=== PATIENT | female | born 1960 | race Caucasian/White ===

== ENCOUNTER 2018-05-24 14:52 | Emergency (ER) | payer BC, SELFPAY ==
[2018-05-24 15:11] VITALS: PULSE 76; RESP 16; TEMP 37.1; O2SAT 96
[2018-05-24 15:14] VITALS: BP 141/80
--- NOTE | 2018-05-24 15:37 | DI.CT.S_ITS ---
PROCEDURE: CT SOFT TISSUE NECK W CON INDICATIONS: right dental absces large facial swelling TECHNIQUE: After the administration of intravenous contrast, 3.0 mm axial sections acquired from the sella to the aortic arch. Additional oblique axial 3.0 mm sections acquired through the pharynx. 3 mm thick coronal and sagittal reformats were generated. For radiation dose reduction, the following was used: automated exposure control. COMPARISON: None. FINDINGS: Image quality: Excellent. Lymph nodes: Borderline enlarged lymph nodes are present predominantly within the right neck. Vessels: Visualized vasculature appears patent. Neck spaces: The oropharynx, nasopharynx, and pharynx demonstrate no mucosal lesions. The vocal cords, false vocal cords, pyriform sinuses, epiglottis, vallecula, and tongue base all appear normal. Extramucosal spaces appear unremarkable. Glands: The parotid and submandibular glands appear normal. Thyroid gland is heterogeneously enlarged with areas of low attenuation and calcification bilaterally, more prominent on the left, extending to the superior mediastinum.. Miscellaneous: Visualized brain and orbits appear normal. Lung apices appear clear. Superficial soft tissues demonstrate a kidney and stranding adjacent to the anterior mid mandible. There is significant streak artifact from adjacent dental hardware. While this limits evaluation, there are felt to be areas of lucency within the posterior lower right teeth, adjacent to the edema. No focal fluid collection is identified to suggest abscess within the soft tissues. Bones: No suspicious bony lesions. Visualized sinuses and mastoids appear unremarkable. IMPRESSION: 1. Soft tissue edema adjacent to the right mandible with suspected areas of lucency within the posterior right lower teeth suggestive of dental disease. Overall appearance is suggestive of cellulitis. No soft tissue abscess is identified. Dental abscess within the cavity cannot be excluded. Borderline adenopathy presumably reactive is noted. Dictated by: Tayla Richmond M.D. on 05/24/2018 at 16:56 Approved by: Tayla Richmond M.D. on 05/24/2018 at 17:02
--- NOTE | 2018-05-24 15:39 | ED.DENTAL ---
HPI - Dental/Oral General Chief complaint: Dental/Oral Stated complaint: oral swelling and pain from dentist,sent for antib Time Seen by Provider: 05/24/18 15:17 Source: patient Mode of arrival: ambulatory Limitations: no limitations History of Present Illness HPI Narrative: Patient is a 58-year-old female who presents with right-sided facial swelling. He said he was diagnosed with a dental abscess this morning. She noticed some pain and discomfort 3 days ago a did progressively get worse however this morning she woke up and her face was significantly swollen along with some of her neck. She has no difficulty swallowing or speaking. She is able to open her mouth without any difficulty. She was seen by her dentist today who sent her to the emergency department for IV antibiotics and possible admission. She denies any fever or chills. Related Data Previous Rx's Medication Instructions Recorded amoxicillin-pot clavulanate 1 tab PO Q12H #20 tab 05/24/18 [Augmentin] hydrocodone-acetaminophen [[place]] 1 tab PO Q6H PRN #10 tab 05/24/18 prednisone 50 mg PO DAILY #5 tab 05/24/18 Allergies Allergy/AdvReac Type Severity Reaction Status Date / Time No Known Drug Allergies Allergy Verified 05/24/18 15:14 Review of Systems Review of Systems GENERAL: Denies chills, fatigue, malaise, fever, sweats, travel HEENT: See HPI RESPIRATORY: Denies dyspnea, cough, wheezing, hemoptysis, sputum. CARDIOVASCULAR: Denies chest pain, palpitations, orthopnea, edema GASTROINTESTINAL: Denies nausea, vomiting, abdominal pain, diarrhea, constipation, melena. : Denies dysuria, frequency, incontinence, hematuria, urinary retention, flank pain. MUSCULOSKELETAL: Denies weakness, joint pain, or bony pain SKIN: No rash, no erythema, no pruritus NEUROLOGIC: Denies weakness, dizziness, headache, numbness, change in speech, confusion PSYCHIATRIC: No concerning psychosocial issues. 12 point review of systems is negative except for those stated above and HPI PFSH Social History Smoking Status: Current every day smoker Social History Smoking Status: Current every day smoker Exam Initial Vital Signs Initial Vital Signs: Vital Signs Temperature 98.8 F 05/24/18 15:11 Pulse Rate 76 05/24/18 15:11 Respiratory Rate 16 05/24/18 15:11 Pulse Oximetry 96 05/24/18 15:11 GENERAL: Alert female with obvious right facial no acute distress speaking without difficulty HEENT: Head atraumatic,EOMI, pupils reactive, significant right-sided facial swelling mild erythema. No obvious dental abscess PHARYNX: No tonsillar swelling or exudate no uvula deviation airway patent CARDIOVASCULAR: Regular rate and rhythm without murmurs, rubs or gallops. RESPIRATORY: Breath sounds equal bilaterally, no wheezes rales or rhonchi. ABDOMEN: Soft, nontender. Normoactive bowel sounds all 4 quadrants. No guarding or rebound. EXTREMITIES: Normal range of motion, no clubbing or edema. Neurovascularly intact NEUROLOGICAL: Alert and oriented x4.Normal gait and speech. SKIN: Warm, dry, no laceration, no petechiae, no rashes or lesions. Course Orders Ordered: Discontinued Medications Ampicillin Sodium/Sulbactam (Sodium 3 gm/ Sodium Chloride) 100 mls @ 100 mls/hr IV NOW ONE Stop: 05/24/18 15:38 Last Infusion: 05/24/18 18:13 Dose: 0 mls/hr Admin: 05/24/18 15:58 Dose: 100 mls/hr Dexamethasone 20 mg/ Sodium (Chloride) 52 mls @ 208 mls/hr IV NOW ONE Stop: 05/24/18 15:38 Last Infusion: 05/24/18 17:05 Dose: 0 mls/hr Admin: 05/24/18 15:58 Dose: 208 mls/hr Sodium Chloride (Normal Saline 0.9%) 1,000 mls @ 1,000 mls/hr IV BOLUS ONE Stop: 05/24/18 16:36 Last Infusion: 05/24/18 18:47 Dose: 0 mls/hr Admin: 05/24/18 15:58 Dose: 1,000 mls/hr Ketorolac Tromethamine (Toradol) 15 mg IV NOW ONE Stop: 05/24/18 17:29 Last Admin: 05/24/18 17:46 Dose: 15 mg Vital Signs - 8 hr 05/24/18 15:11 05/24/18 15:14 Temperature 98.8 F Pulse Rate 76 Respiratory Rate 16 Blood Pressure [Left Arm] 141/80 H Pulse Oximetry 96 MDM - Dental/Oral Lab Data Attestation: I reviewed the patient's lab results. Result diagrams: 05/24/18 15:52 05/24/18 15:52 Lab Results 05/24/18 05/24/18 05/24/18 Range/Units 15:52 15:52 15:56 WBC 7.1 (4.5-11.0) X10^3/uL RBC 4.62 (4.0-5.2) X10^6/uL Hgb 13.9 (12.0-16.0) g/dL Hct 42.2 (36-46) % MCV 91.3 (80-100) fL MCH 30.1 (26-34) PG MCHC 33.0 (30-36) % RDW 13.8 (11.6-14.8) % Plt Count 147 L (150-400) X10^3/uL Neut % (Auto) 68.3 (50-75) % Lymph % (Auto) 20.9 L (25-40) % [place] % (Auto) 9.2 (3-14) % Eos % (Auto) 0.9 L (2-4) % Baso % (Auto) 0.7 (0-2) % Neut # (Auto) 4800 (2901-5894) /uL Lymph # (Auto) 1500 (2705-9013) /uL [place] # (Auto) 700 (0-900) /uL Eos # (Auto) 100 (0-450) /uL Baso # (Auto) 0 (0-100) /uL Sodium 140 (137-145) mmol/L Potassium 4.1 (3.4-5.1) mmol/L Chloride 106 (98-107) mmol/L Carbon Dioxide 27 (22-32) mmol/L BUN 10 (7-17) mg/dL Creatinine 0.70 (0.52-1.04) mg/dL Estimated GFR > 60.0 (>60) mL/min BUN/Creatinine Ratio 14.3 (6-22) Glucose 98 (70-100) mg/dL Lactate 0.7 (0.7-2.1) mmol/L Calcium 9.4 (8.4-10.2) mg/dL Imaging Data soft tissue neck: Radiologist's impression: PROCEDURE: CT SOFT TISSUE NECK W CON INDICATIONS: right dental absces large facial swelling TECHNIQUE: After the administration of intravenous contrast, 3.0 mm axial sections acquired from the sella to the aortic arch. Additional oblique axial 3.0 mm sections acquired through the pharynx. 3 mm thick coronal and sagittal reformats were generated. For radiation dose reduction, the following was used: automated exposure control. COMPARISON: None. FINDINGS: Image quality: Excellent. Lymph nodes: Borderline enlarged lymph nodes are present predominantly within the right neck. Vessels: Visualized vasculature appears patent. Neck spaces: The oropharynx, nasopharynx, and pharynx demonstrate no mucosal lesions. The vocal cords, false vocal cords, pyriform sinuses, epiglottis, vallecula, and tongue base all appear normal. Extramucosal spaces appear unremarkable. Glands: The parotid and submandibular glands appear normal. Thyroid gland is heterogeneously enlarged with areas of low attenuation and calcification bilaterally, more prominent on the left, extending to the superior mediastinum.. Miscellaneous: Visualized brain and orbits appear normal. Lung apices appear clear. Superficial soft tissues demonstrate a kidney and stranding adjacent to the anterior mid mandible. There is significant streak artifact from adjacent dental hardware. While this limits evaluation, there are felt to be areas of lucency within the posterior lower right teeth, adjacent to the edema. No focal fluid collection is identified to suggest abscess within the soft tissues. Bones: No suspicious bony lesions. Visualized sinuses and mastoids appear unremarkable. IMPRESSION: 1. Soft tissue edema adjacent to the right mandible with suspected areas of lucency within the posterior right lower teeth suggestive of dental disease. Overall appearance is suggestive of cellulitis. No soft tissue abscess is identified. Dental abscess within the cavity cannot be excluded. Borderline adenopathy presumably reactive is noted. Dictated by: Tayla Richmond M.D. on 05/24/2018 at 16:56 MDM Narrative Medical decision making narrative: patient was like the swelling has come down. She has no airway compromise she has appointment with her dentist tomorrow for dense tooth removal. She is put on steroids and antibiotics. At this time she feels ready and able to go home. She does not appear septic Discharge Plan Departure Patient Disposition: Home Clinical Impression: Dental abscess Discharge Date/Time: 05/24/18 18:15 Interventions: ED Discharge Assessment Last Done: 05/24/18 18:15 Instructions: Tooth Abscess Activity Restrictions/Additional Instructions: *You have been diagnosed with dental abscess *What to do: stay hydrated *Continue to take medications as directed Augmentin 8751 pill every 12 hr for 10 days prednisone 50 mg once a day for 5 days [place] 1 tab every 6 hr if needed for severe pain *Follow up with your primary care provider in 2-3 days- follow up with her dentist tomorrow so that you're tooth can be pulled *Return to ER if you should have difficulty breathing increase with facial swelling or any new, worsening or concerning symptoms Prescriptions: New hydrocodone-acetaminophen [[place]] 5-325 mg tablet 1 tab PO Q6H PRN (Reason: pain) Qty: 10 RF: 0 prednisone 50 mg tablet 50 mg PO DAILY Qty: 5 RF: 0 amoxicillin-pot clavulanate [Augmentin] 875-125 mg tablet 1 tab PO Q12H Qty: 20 RF: 0
[2018-05-24] MEDS: AMPICILLIN/SULBACTAM 3 GM 3 GM in SODIUM CHLORIDE 0.9% 100 ML IV (15:58)
[2018-05-24] MEDS: DEXAMETHASONE 20 MG in SODIUM CHLORIDE 0.9% 50 ML 208 ML IV (15:58)
[2018-05-24] MEDS: SODIUM CHLORIDE 0.9% 1,000 ML 1000 ML IV (15:58)
[2018-05-24 16:13] LABS: Add Manual Diff / Slide Review NO; Basophils Absolute Auto 0 /uL (0-100); Basophils Percent Auto 0.7 % (0-2); Eosinophils Absolute Auto 100 /uL (0-450); Eosinophils Percent Auto 0.9 % (2-4); Hematocrit 42.2 % (36-46); Hemoglobin 13.9 g/dL (12.0-16.0); Lymphocytes Absolute Auto 1500 /uL (1100-4500); Lymphocytes Percent Auto 20.9 % (25-40); Mean Corpuscular Hemoglobin 30.1 PG (26-34); Mean Corpuscular Volume 91.3 fL (80-100); Monocytes Absolute Auto 700 /uL (0-900); Monocytes Percent Auto 9.2 % (3-14); Neutrophils Absolute Auto 4800 /uL (1500-7000); Neutrophils Percent Auto 68.3 % (50-75); Platelet Count 147 X10^3/uL (150-400); Red Blood Cell Count 4.62 X10^6/uL (4.0-5.2); Red Cell Distribution Width 13.8 % (11.6-14.8); White Blood Cell Count 7.1 X10^3/uL (4.5-11.0)
[2018-05-24 16:16] LABS: Lactate (Lactic Acid) 0.7 mmol/L (0.7-2.1)
[2018-05-24 16:25] LABS: BUN Creatinine Ratio 14.3 (6-22); Blood Urea Nitrogen 10 mg/dL (7-17); Calcium 9.4 mg/dL (8.4-10.2); Carbon Dioxide 27 mmol/L (22-32); Chloride 106 mmol/L (98-107); Estimated Glomerular Filt Rate > 60.0 mL/min (>60); Glucose 98 mg/dL (70-100); HEMOLYSIS < 15 (0-50); Potassium 4.1 mmol/L (3.4-5.1); Sodium 140 mmol/L (137-145)
[2018-05-24 16:54] VITALS: BP 133/76; PULSE 71; RESP 17; O2SAT 98
[2018-05-24] MEDS: KETOROLAC 60 MG/2 ML VIAL 15 MG IV (17:46)
== END 2018-05-24 18:15 | disposition home or self-care (01) ==
PROVIDERS: Emergency Provider Emergency Medicine
DX: K04.7 Periapical abscess without sinus (principal)
CPT/HCPCS: 36415; 36591; 70491; 80048; 83605; 85025; 87040; 96361; 96365; 96366; 96368; 96375; 99283; 99285; J0295; J1100; J1885; Q9967

== ENCOUNTER 2024-12-11 13:11 | Emergency (ER) | payer OTHER, SELFPAY ==
[2024-12-11 13:37] VITALS: BP 117/68; PULSE 63; RESP 18; TEMP 36.6; O2SAT 98; BMI 25.1
--- NOTE | 2024-12-11 15:03 | ED.DENTAL ---
HPI - Dental/Oral General Chief complaint: Dental/Oral Stated complaint: WIC: RT side cheek, poss abscess Time Seen by Provider: 12/11/24 15:03 Source: patient Mode of arrival: Family Vehicle History of Present Illness HPI Narrative: 64-year-old female without any significant past medical history comes into the ED from home for evaluation of dental abscess/dental pain. She states that she broke her to with a proximally week ago, she states that today she woke up noticed some swelling to her right submandibular region, she states that she is going to contact her dentist tomorrow but went to walk-in clinic for antibiotics was was instructed come into the ED. on my exam patient with some swelling to the right cheek but no overlying erythema, patient is speaking full sentences protecting airway no voice changes no stridor no trismus. She denies any other symptoms at this time no trauma no falls Related Data Previous Rx's ?Medication ?Instructions ?Recorded amoxicillin 875 mg-potassium 1 tab PO Q12H #20 tabs 05/24/18 clavulanate 125 mg tablet (Augmentin) hydrocodone 5 mg-acetaminophen 325 1 tab PO Q6H PRN pain #10 tabs 05/24/18 mg tablet ([place]) prednisone 50 mg tablet 50 mg PO DAILY #5 tabs 05/24/18 amoxicillin 875 mg-potassium 1 tab PO BID 10 days #20 tabs 12/11/24 clavulanate 125 mg tablet Allergies Allergy/AdvReac Type Severity Reaction Status Date / Time No Known Drug Allergies Allergy Verified 12/11/24 13:37 Review of Systems Review of Systems Narrative: General: Denies fever, chills, weight loss HEENT: Right submandibular swelling, dental pain Denies headache, eye drainage, eye irritation, head trauma, sore throat, voice change Cardiovascular: Denies any chest pain, palpitations, tachycardia Respiratory: Denies any shortness of breath, cough, wheeze, stridor GI/: Denies any abdominal pain, nausea, vomiting, diarrhea, bright red blood per rectum, melanotic stools, urinary frequency, urinary retention, dysuria, hematuria MSK: Denies any joint pain, muscle pains, swelling Skin: Denies any rashes, lesions, discoloration Neuro: Denies any headache, lightheadedness, dizziness, fainting, weakness Psych: Denies SI/HI Patient History Smoking Status: Current some day smoker tobacco type: cigarettes Exam Narrative Exam Narrative: General: Cooperative, well-developed, not in acute distress HEENT: Normocephalic, atraumatic, PERRLA, normal sclera, eyelids normal, patient with some mild right submandibular swelling, posterior oropharynx is clear without any obstruction to the posterior oropharynx uvula is midline, patient is speaking full sentences protecting airway, she has a dental caries and a cracked tooth noted to the right submandibular area, no periapical abscess noted. She has no overlying erythema of the face, Neck: Active full range of motion, atraumatic Chest: Normal to inspection, negative crepitus, no overlying erythema ecchymosis Respiratory: Normal respiratory effort, not in acute respiratory distress, clear to auscultation bilaterally negative cough, wheeze, tachypnea, rhonchi, rales Cardiology: Regular rate rhythm negative gallop, murmur, rubs GI/: No tenderness to palpation, soft, non rigid, normal to inspection, exam deferred MSK: Full active range of motion in all 4 extremities, atraumatic, no tenderness to palpation of any bony prominences Skin: No rashes or lesions noted Neuro: Alert awake oriented x3, moves all 4 extremities spontaneously, cranial nerves intact, able to answer all questions appropriately follows commands appropriately Psych: Cooperative, negative suicidal or homicidal ideations Initial Vital Signs Initial Vital Signs: Vital Signs Temperature 97.8 F 12/11/24 13:37 Pulse Rate 63 12/11/24 13:37 Respiratory Rate 18 12/11/24 13:37 Blood Pressure 117/68 12/11/24 13:37 Pulse Oximetry 98 12/11/24 13:37 Oxygen Delivery Method Room Air 12/11/24 13:37 Course Vital Signs Vital signs: Vital Signs - 8 hr 12/11/24 13:37 Temperature 97.8 F Pulse Rate 63 Respiratory Rate 18 Blood Pressure 117/68 Pulse Oximetry 98 Oxygen Delivery Method Room Air MDM - Dental/Oral MDM Narrative Medical decision making narrative: 64-year-old female presenting for right submandibular swelling/dental pain, she states that she noticed increased swelling yesterday/this morning. States that she has been using compresses and gargling warm salt water but states that the swelling has gotten worse, she denies any difficulty swallowing breathing on exam she has some mild submandibular swelling but she has no voice change stridor or trismus tolerating secretions. She has multiple dental caries to the right lower jaw, she states that she did crepitus tooth 1 week ago, she states that she went to the walk-in clinic for antibiotics but was instructed to come into the ED for further evaluation treatment. Patient will be discharged home with oral antibiotics and instructed follow up with the dentist given no periapical abscess noted. She verbalized understanding of this and agrees to being discharged home with outpatient follow up Discharge Plan Departure Patient Disposition: Home Clinical Impression: Pain, dental Instructions: DI for Dental Pain Activity Restrictions/Additional Instructions: Please contact your dentist for evaluation treatment of your symptoms Please follow up with the primary care doctor as needed Please read the discharge instructions sheet carefully and bring all papers to all doctor follow-up visits, as it may contain information that your doctor may want to see. Disease processes change and evolve, if your symptoms worsen or if you develop any new symptoms that are concerning to you please return for evaluation. Your evaluation today does not show any evidence of any life-threatening/serious illnesses requiring admission to the hospital or surgery. Please follow-up with your doctor for re-evaluation in approximately 1 day. Seek immediate medical attention for any worrisome symptoms. *If you do not have a primary care provider please contact the [facility] Resource line at [phone]. They will ask some questions about your medical history and help get you set up with a doctor in the community. Prescriptions: New amoxicillin-pot clavulanate 875-125 mg tablet 1 tab PO BID 10 Days Qty: 20 0RF No Action hydrocodone-acetaminophen [[place]] 5-325 mg tablet 1 tab PO Q6H PRN (Reason: pain) Qty: 10 0RF prednisone 50 mg tablet 50 mg PO DAILY Qty: 5 0RF amoxicillin-pot clavulanate [Augment[place]] 875-125 mg tablet 1 tab PO Q12H Qty: 20 0RF Referrals: Miscellaneous,Doctor, [Primary Care Provider, Medical] Stand Alone Forms: Patient Portal/API
[2024-12-11] MEDS: AMOXICILLIN/CLAV 875/125 MG 1 TAB PO (15:11)
== END 2024-12-11 15:19 | disposition home or self-care (01) ==
PROVIDERS: Emergency Provider Student in an Organized Health Care Education/Training Program
DX: K08.89 Other specified disorders of teeth and supporting structures (principal)
CPT/HCPCS: 99283